=== PATIENT | male | born 1945 | race African-American/Black ===

== ENCOUNTER 2018-12-08 12:40 | Emergency (ER) | payer SELFPAY ==
[~2018-12-08] VITALS: Ht 177.8 cm; Wt 73.0 kg
[2018-12-08] MEDS ORDERED: SODIUM CHLORIDE 0.9% 1,000 ML IV ONE (14:12)
[2018-12-08] MEDS ORDERED: ACETAMINOPHEN 650MG/20.3ML UDC PO ONE (14:15)
[2018-12-08 14:40] LABS: BASOPHILS % 0.8 % (0.0-2.0); EOSINOPHILS % 1.4 % (0.0-5.0); HEMATOCRIT. 37.4 % (42.0-52.0); HEMOGLOBIN. 12.8 g/dL (14.0-18.0); LYMPHOCYTES % 8.2 % (20.0-50.0); MEAN CORPUSCULAR HEMOGLOBIN 28.1 pg (28.0-32.0); MEAN CORPUSCULAR VOLUME 82.2 fL (80.0-94.0); MEAN PLATELET VOLUME 7.7 fl (7.4-10.4); MONOCYTES % 5.8 % (2.0-8.0); NEUTROPHILS % 83.8 % (40.0-76.0); PLATELET 242 x1000/uL (130-400); RED BLOOD CELL COUNT 4.55 mill/uL (4.7-6.1); RED CELL DISTRIBUTION WIDTH 16.8 % (11.6-14.6)
[2018-12-08 14:46] LABS: CHLORIDE 102 mEq/L (98-107)
[2018-12-08 14:49] LABS: ETHANOL BLOOD < 10 mg/dL
[2018-12-08 18:08] VITALS: BP 148/85
== END 2018-12-08 18:37 | disposition home or self-care (01) ==
LOC: ER 12:51 → CANBEDREQ 18:48
DX: M54.9 Dorsalgia, unspecified (principal); R10.9 Unspecified abdominal pain; I10 Essential (primary) hypertension
CPT/HCPCS: 36415; 70450; 80053; 80320; 83880; 84484; 85025; 93005; 99284; J7030; G0480